=== PATIENT | female | born 1990 | race Caucasian/White ===

== ENCOUNTER → 2016-10-27 | Outpatient (CLI) | payer BC ==
--- NOTE | 2016-10-28 06:49 | US ---
EXAMINATION TYPE: US OB <= 14 wk fetus DATE OF EXAM: 10/27/2016 COMPARISON: NONE CLINICAL HISTORY: N91.2 AMENORRHEA. Positive beta-hCG test EXAM PERFORMED: Transabdominal (TA) EXAM MEASUREMENTS: GESTATIONAL AGE / DATING Physician Established: not established Dates by LMP: (14 weeks/0 days) EDC: 04/27/2017 Dates by First Scan: this is first scan Dates by Current Scan for: (14 weeks/1 days) EDC: 04/26/2017 MATERNAL ANATOMY Uterus: 15.8 x 7.8 x 10.7 Right Ovary: 3.2 x 1.7 x 2.1 cm Left Ovary: 3.1 x 2.7 x 2.0 cm Post CDS / Adnexa: wnl Presence of free fluid: none GESTATION / SURVEY CRL: 8.0 cm (14 weeks/1 days) Yolk Sac (normal less than 6mm): not seen Heart Rate: 144 bpm Rhythm: Normal IUP: Viable IUP Date of LMP: 07/21/2016 viable IUP that correlates with LMP. Single live intrauterine gestation is confirmed as gestational sac and pole are present. Yolk s ac is not clearly identified. No free fluid is seen in pelvic cul-de-sac. Both ovaries are visualized. No suspicious extraovarian adnexal mass is seen bilaterally. IMPRESSION: Single live intrauterine gestation is confirmed, mean crown-rump length is 8.0 cm corresponding to 14 week 1 day old fetus.
== END | disposition home or self-care (01) ==
LOC: RADUSWWP 16:12
PROVIDERS: ATTEND Internal Medicine
DX: N91.2 Amenorrhea, unspecified (principal); Z32.01 Encounter for pregnancy test, result positive; Z3A.14 14 weeks gestation of pregnancy
CPT/HCPCS: 76801

== ENCOUNTER 2017-04-30 02:33 | Outpatient (CLI) | payer BC ==
[2017-04-30 03:47] VITALS: BP 132/95; PULSE 99; RESP 15; TEMP 97.8
--- NOTE | 2017-05-19 10:06 | P.MSEPDOC ---
Presenting Problems - Arrival Data Date of Arrival on Unit: 04/30/17 Time of Arrival on Unit: 02:33 Mode of Transport: Wheelchair - Complaint OB-Reason for Admission/Chief Complaint: Vaginal Bleeding Medical History - Information : 1 Para: 0 Term: 0 : 0 Abortions: Spontaneous or Elective: 0 Number of Living Children: 0 - Gestational Age Gestational Age by REY (wks/days): 40 Weeks and 4 Days - History Complications: Smoker, Hx. Substance Abuse Comment: Hx THC stated in Review of Systems - Review of Systems Constitutional: No problems Breast: No problems ENT: No problems Cardiovascular: No problems Respiratory: No problems Gastrointestinal: No problems Genitourinary: No problems Musculoskeletal: No problems Neurological: No problems Skin: No problems Vital Signs - Temperature Temperature: 97.8 F Temperature Source: Temporal Artery Scan - Pulse Pulse Oximetery Pulse Rate: 99 Pulse Assessment Method: Automatic Cuff - Respirations Respiratory Rate: 15 Oxygen Delivery Method: Room Air O2 Sat by Pulse Oximetry: 97 - Blood Pressure Right Arm Blood Pressure: 132/95 Blood Pressure Mean: 107 Blood Pressure Source: Automatic Cuff Medical Screen Scoring (Pre) - Cervical Exam Dilation: 4-7 cm = 2 Membranes: Intact - Uterine Contractions Frequency: N/A Duration: N/A Intensity: N/A - Maternal Vital Signs Maternal Temperature: N/A Maternal Blood Pressure: N/A Signs of Preeclampsia: N/A Maternal Respirations: N/A - Pain Assessment Pain Location and Character: Abdomen Pain Scale Used: Numeric (1 - 10) Pain Intensity: 5 Pain Management Goal: 2 Pain Description: *Acute, Aching Pain Radiation Location: none Pain Frequency: Intermittent Pain Duration: 20 Pain Duration Units: Minutes Pain Behavior: None Exhibited Pain Aggravating Factors: None - Maternal Trauma Maternal Trauma: N/A - Assessment Baseline FHR: 140 Heart Rate - NICHD Category: Category II (Indeterminate) = 3 NST: Non-reactive = 3 Position: N/A Station: N/A - Total Score Total Score (Pre): 8 - Level of Risk Level of Risk: Medium (6-9) Physician Notification (Pre) - Physician Notified Physician Notified Date: 04/30/17 Physician Notified Time: 03:20 Physician/Practitioner Notifed:: Dr Vazquez New Order Received: Yes - Notification Comment Comment: Orders to orally hydrate to obtain reactive NST. If NST remains non- reactive call with update. If NST becomes reactive patient may be discharged home. Medical Screen Scoring (Post) - Cervical Exam Dilation: 4-7 cm = 2 Membranes: Intact - Uterine Contractions Frequency: N/A Duration: N/A Intensity: N/A - Maternal Vital Signs Maternal Temperature: N/A Maternal Blood Pressure: N/A Signs of Preeclampsia: N/A Maternal Respirations: N/A - Pain Assessment Pain Intensity: 0 Pain Management Goal: 2 - Maternal Trauma Maternal Trauma: N/A - Assessment Heart Rate: 140 Heart Rate - NICHD Category: Category I (Normal) = 0 NST: Reactive Position: N/A Station: N/A - Total Score Total Score (Post): 2 - Post Treatment Level of Risk Post Treatment Level of Risk: Low (0-5) Disposition - Disposition OB Disposition: Discharge to home, Written follow up instructions reviewed Discharge Date: 04/30/17 Discharge Time: 04:12 I agree with the RN Medical Screening Exam: Yes Risk & Benefit of care provided described in d/c instruction: Yes Diagnosis: FALSE LABOR AT OR AFTER 37 COMPLETED WEEKS OF GESTATION
== END 2017-04-30 04:12 | disposition home or self-care (01) ==
LOC: FBPOP 02:33
PROVIDERS: ATTEND Obstetrics & Gynecology Obstetrics
DX: O47.1 False labor at or after 37 completed weeks of gestation (principal); O46.93 Antepartum hemorrhage, unspecified, third trimester; Z3A.40 40 weeks gestation of pregnancy
CPT/HCPCS: 59025; 99213

== ENCOUNTER 2017-04-30 22:05 | Inpatient (IN) | payer BC, OTHER ==
--- NOTE | 2017-05-01 01:28 | P.HPOB ---
History of Present Illness H&P Date: 05/01/17 Chief Complaint: Contractions This is a 26-year-old 1 para 0 at 40-2/7 weeks that presents with complaints of contractions every 2-3 minutes. On initial cervical exam she was 4-5 cm, -2 station. heart tones were noted to be reactive. blood work shows blood type of A+, rubeola immune, RPR nonreactive, hepatitis B surface antigen negative, HIV negative normal Glucola screening, group beta strep negative on 03/28. Review of Systems Constitutional: Denies fever Genitourinary: Reports Past Medical History Past Medical History: Seizure Disorder Additional Past Medical History / Comment(s): epilepsy History of Any Multi-Drug Resistant Organisms: None Reported Past Surgical History: No Surgical Hx Reported Smoking Status: Former smoker Medications and Allergies Home Medications Medication Instructions Recorded Confirmed Type Famotidine [Pepcid AC] 10 mg PO ONCE PRN 04/30/17 04/30/17 History Pnv No.95/Ferrous Fum/Folic AC 1 each PO DAILY 04/30/17 04/30/17 History [ Multivitamin Tablet] Allergies Allergy/AdvReac Type Severity Reaction Status Date / Time No Known Allergies Allergy Verified 04/30/17 22:21 Exam Osteopathic Statement: *. No significant issues noted on an osteopathic structural exam other than those noted in the History and Physical/Consult. - Vital Signs Vital signs: Intake and Output 04/30/17 04/30/17 05/01/17 14:59 22:59 06:59 Other: Weight 114.305 kg Patient Weight 05/01/17 06:59 Weight 114.305 kg Assessment and Plan (1) Term Narrative/Plan: We'll admit to labor and delivery with expectant management, Stadol or epidural as needed for pain control. Current Visit: Yes Status: Acute Code(s): Z34.80 - ENCOUNTER FOR SUPRVSN OF NORMAL , UNSP TRIMESTER SNOMED Code(s): 28952970 (2) Active labor at term Current Visit: Yes Status: Acute Code(s): YEK7147 - SNOMED Code(s): 94681921
[2017-05-01] MEDS ORDERED: OXYTOCIN 10 UNIT/ML 1 ML VIAL IM PRN (01:29)
[2017-05-01] MEDS ORDERED: LIDOCAINE 1% (PF) 10 MG/ML (30 ML SDV) SQ PRN (01:29)
[2017-05-01] MEDS ORDERED: TERBUTALINE 1 MG/ML VIAL SQ PRN (01:29)
[2017-05-01] MEDS ORDERED: METHYLERGONOVINE 0.2 MG/ML 1 ML AMP IM PRN (01:29)
[2017-05-01] MEDS ORDERED: CARBOPROST TROMETHAMINE 250 MCG/ML 1 ML AMP IM PRN (01:29)
[2017-05-01] MEDS: LACTATED RINGERS 1,000 ML IV SCH (02:36)
[2017-05-01 03:12] LABS: Basophils # (A) 0.1 k/uL (0-0.2); Basophils % (A) 0 %; Eosinophils # (A) 0.1 k/uL (0-0.7); Eosinophils % (A) 1 %; HCT 39.5 % (34.0-46.0); HGB 12.9 gm/dL (11.4-16.0); Lymphocytes # (A) 2.4 k/uL (1.0-4.8); Lymphocytes % (A) 16 %; MCH 28.9 pg (25.0-35.0); MCHC 32.6 g/dL (31.0-37.0); MCV 88.8 fL (80.0-100.0); Mean Platelet Volume 7.4; Monocytes # (A) 0.8 k/uL (0-1.0); Monocytes % (A) 5 %; Neutrophils # (A) 11.6 k/uL (1.3-7.7); Neutrophils % (A) 76 %; Platelet Count 300 k/uL (150-450); RBC 4.45 m/uL (3.80-5.40); RDW 14.6 % (11.5-15.5); WBC 15.3 k/uL (3.8-10.6)
[2017-05-01 03:53] LABS: Amphetamine Screen,Urine Not Detected (NotDetected); Barbiturate Screen,Urine Not Detected (NotDetected); Benzodiazepines Screen,Urine Not Detected (NotDetected); Cocaine Screen,Urine Not Detected (NotDetected); Methadone Screen, Urine Not Detected (NotDetected); Opiate Screen,Urine Not Detected (NotDetected); Oxycodone Screen, Urine Not Detected (NotDetected); Phencyclidine Screen,Urine Not Detected (NotDetected); Tricyclic Antidepressant,Urine Not Detected (NotDetected); Urn Cannabinoid Scrn Not Detected (NotDetected)
[2017-05-01] MEDS: BUTORPHANOL 1 MG/ML 1 ML VIAL IV PRN ×2 (03:55→06:12)
[2017-05-01] MEDS ORDERED: ZOLPIDEM 5 MG TAB PO PRN (08:52)
[2017-05-01] MEDS ORDERED: ACETAMINOPHEN TAB 325 MG TAB PO PRN (08:52)
[2017-05-01] MEDS ORDERED: diphenhydrAMINE 25 MG CAP PO PRN (08:52)
[2017-05-01] MEDS ORDERED: Acetaminophen-Codeine 300-30mg TAB PO PRN ×2 (08:52)
[2017-05-01] MEDS ORDERED: SIMETHICONE 80 MG CHEWABLE PO PRN (08:52)
[2017-05-01] MEDS ORDERED: HYDROCORTISONE 2.5% RECTAL CREAM 30 GM TUBE RECTAL PRN (08:52)
[2017-05-01] MEDS ORDERED: LANOLIN CREAM 5 GM TUBE TOPICAL PRN (08:52)
[2017-05-01] MEDS ORDERED: diphenhydrAMINE 50 MG CAP PO PRN (08:52)
[2017-05-01] MEDS ORDERED: WITCH HAZEL 1 EACH MED..PAD TOPICAL PRN (08:52)
[2017-05-01] MEDS ORDERED: BENZOCAINE/MENTHOL SPRAY 1 GM/SPRAY AEROSOL TOPICAL PRN (08:52)
[2017-05-01] MEDS ORDERED: diphenhydrAMINE 50 MG/ML 1 ML VIAL IVP PRN ×2 (08:52)
--- NOTE | 2017-05-01 08:52 | P.PROBDLV ---
Vaginal Delivery Note - . Vaginal Delivery Note: This is a 26-year-old 1 para 0 at 40-4/7 weeks that presented in active labor. She progressed through labor with amniotomy being performed and thin meconium being noted. She progressed to complete and had a spontaneous vaginal delivery of a viable male infant at 8:10am and weight 10-7, Apgars of 8 and 9 at one and 5 minutes respectively. Consent progressed to and head was delivered atraumatically followed by the anterior shoulder gentle traction was used to deliver the anterior shoulder followed by the posterior shoulder, the baby's body was delivered without difficulty and the was placed on mom's abdomen. The cord is doubly clamped and cut. On inspection the patient's vaginal vault a second- degree laceration was noted this was repaired in the usual fashion with 3-0 Vicryl after lidocaine had been injected to anesthetize the area. Patient tolerated delivery/repair well on it inspection of the patient's vaginal vault after repair no further defects were noted a rectal exam was performed given the size of the and no defects were appreciated.
[2017-05-01] MEDS ORDERED: OXYTOCIN 20 UNITS/1000 ML NS 1,000 ML IV SCH (09:00)
[2017-05-01] MEDS: PRENATAL VIT-IRON-FOLIC ACID 1 EACH CAP PO SCH (12:12)
[2017-05-01] MEDS: IBUPROFEN 600 MG TAB PO PRN (14:55)
[2017-05-01] MEDS: SENNOSIDES-DOCUSATE SODIUM 1 EACH TAB PO SCH (21:13)
[2017-05-02] MEDS: LACTATED RINGERS 1,000 ML IV SCH (00:44)
[2017-05-02 09:07] VITALS: RESP 16
[2017-05-02] MEDS: SENNOSIDES-DOCUSATE SODIUM 1 EACH TAB PO SCH ×2 (09:09→18:24)
[2017-05-02] MEDS: PRENATAL VIT-IRON-FOLIC ACID 1 EACH CAP PO SCH (09:20)
--- NOTE | 2017-05-02 09:31 | P.DS ---
Providers Date of admission: 05/01/17 01:19 Expected date of discharge: 05/02/17 Attending physician: Alma Guzman [facility] Course: This is a 26-year-old white female 1 para 0 EDC 04/27/2017 at 40-4/7 weeks' gestation. Patient presented to labor and delivery in spontaneous active labor. Her was essentially unremarkable. Blood type is A+, rubella status immune. Group B strep cultures negative. Please see dictated history and physical for details. Patient had meconium-stained fluid on artificial amniorrhexis. She progressed quickly through labor and went on to deliver a liveborn male with scores of 8 and 9 at one and 5 minutes respectively. Infant weighed 10 lbs. 7 oz. or 4735 g. There was a small second-degree spontaneous laceration easily repaired. Please see dictated delivery note for details. Today the patient is feeling well. She is voiding, ambulate in, and passing flatus without difficulty. Vital signs are stable and she is afebrile. Ralston is doing well, circumcision has been performed. Patient is not breast-feeding. She has minimal to moderate lochia rubra. Perineal body is clean and dry. Breasts are not engorged. Being discharged home today in good condition. She will follow-up in the office with me in 6 weeks. I have reminded her no intercourse, tampons or douching. She will use [id number] ibuprofen products as needed for pain. I've asked her to call me with any fevers shakes or chills, foul smelling or copious lochia, with the passage of large blood clots, with any pain not alleviated by ibuprofen products, or indeed with any concerns. I have discussed with her contraceptive options and we will delineate this better in the office. Patient Condition at Discharge: Good Plan - Discharge Summary New Discharge Prescriptions: No Action Pnv No.95/Ferrous Fum/Folic AC [ Multivitamin Tablet] 1 each PO DAILY Famotidine [Pepcid AC] 10 mg PO ONCE PRN PRN Reason: Heartburn Discharge Medication List Famotidine [Pepcid AC] 10 mg PO ONCE PRN 04/30/17 [History] Pnv No.95/Ferrous Fum/Folic AC [ Multivitamin Tablet] 1 each PO DAILY [History] Follow up Appointment(s)/Referral(s): Alma Guzman MD [Primary Care Provider] - 6 Weeks
[2017-05-02] MEDS: IBUPROFEN 600 MG TAB PO PRN (15:21)
[2017-05-02 16:05] VITALS: BP 105/66; PULSE 103; TEMP 98.1
== END 2017-05-02 19:55 | disposition home or self-care (01) | DRG 775 ==
LOC: FBPOP 22:05 → 4FBP 05-01 01:19
PROVIDERS: ADMIT Obstetrics & Gynecology Obstetrics; ATTEND Obstetrics & Gynecology
PROC: 10E0XZZ Delivery of Products of Conception, External Approach (ICD-10-PCS; principal; 2017-05-01)
PROC: 0KQM0ZZ Repair Perineum Muscle, Open Approach (ICD-10-PCS; 2017-05-01)
PROC: 10907ZC Drainage of Amniotic Fluid, Therapeutic from Products of Conception, Via Natural or Artificial Opening (ICD-10-PCS; 2017-05-01)
DX: O48.0 Post-term pregnancy (principal); O70.1 Second degree perineal laceration during delivery; Z37.0 Single live birth; Z87.891 Personal history of nicotine dependence; Z3A.40 40 weeks gestation of pregnancy; Z86.69 Personal history of other diseases of the nervous system and sense organs; O77.0 Labor and delivery complicated by meconium in amniotic fluid
CPT/HCPCS: 59025; 80306; 85025; 88307; 99213

== ENCOUNTER 2017-12-03 07:40 | Emergency (ER) | payer BC, OTHER ==
[2017-12-03 07:45] VITALS: BP 109/64; RESP 18; TEMP 98.4
[2017-12-03] MEDS ORDERED: IBUPROFEN 600 MG TAB PO STA (08:19)
[2017-12-03] MEDS ORDERED: BENZOCAINE/MENTHOL LOZENG 1 EACH LOZENGE MUCOUS MEM STA (08:19)
--- NOTE | 2017-12-03 08:21 | ED ---
ENT HPI - General Chief complaint: ENT Stated complaint: sore throat Time Seen by Provider: 12/03/17 08:12 Source: patient Mode of arrival: ambulatory Limitations: no limitations - History of Present Illness Initial comments: 27-year-old female patient presents to the emergency department today for complaints of sore throat, nasal congestion, and cough that started last evening. Patient states that when she woke this morning her throat was very sore and it was painful for her to swallow. States that her throat feels swollen. Patient denies any current fever or chills. Denies any ear pain. Denies any sick contacts or recent travel. Denies any sputum production with her cough. Does admit to smoking cigarettes. Denies any chance of , has nexplanon implant. Patient denies any recent rash, shortness breath, chest pain, abdominal pain, nausea, vomiting, diarrhea, constipation, back pain, numbness, tingling, dizziness, weakness, hematuria, dysuria, urinary urgency, urinary frequency, headache, visual changes, or any other complaints. - Related Data Home Medications Medication Instructions Recorded Confirmed Famotidine [Pepcid AC] 10 mg PO ONCE PRN 04/30/17 04/30/17 Pnv No.95/Ferrous Fum/Folic AC 1 each PO DAILY 04/30/17 04/30/17 [ Multivitamin Tablet] Allergies Allergy/AdvReac Type Severity Reaction Status Date / Time No Known Allergies Allergy Verified 12/03/17 07:42 Review of Systems ROS Statement: Those systems with pertinent positive or pertinent negative responses have been documented in the HPI. ROS Other: All systems not noted in ROS Statement are negative. Past Medical History Past Medical History: Asthma, Seizure Disorder Additional Past Medical History / Comment(s): epilepsy History of Any Multi-Drug Resistant Organisms: None Reported Past Surgical History: No Surgical Hx Reported Past Anesthesia/Blood Transfusion Reactions: No Reported Reaction Past Psychological History: Anxiety, Bipolar Smoking Status: Current some day smoker Past Alcohol Use History: Rare Past Drug Use History: Marijuana - Past Family History Mother Family Medical History: Hypertension General Exam Limitations: no limitations General appearance: alert, in no apparent distress, other (This is a well- developed, well-nourished adult female patient in no acute distress. Vital signs upon presentation are temperature 98.4F, pulse 107, respirations 18, blood pressure 109/64, pulse ox 97% on room air.) Eye exam: Present: normal appearance, PERRL, EOMI. Absent: scleral icterus, conjunctival injection, periorbital swelling ENT exam: Present: normal exam, mucous membranes moist, TM's normal bilaterally. Absent: normal oropharynx (Pharyngeal erythema, tonsillar hypertrophy. No exudate noted.) Neck exam: Present: normal inspection. Absent: tenderness, meningismus, lymphadenopathy Respiratory exam: Present: normal lung sounds bilaterally. Absent: respiratory distress, wheezes, rales, rhonchi, stridor Cardiovascular Exam: Present: regular rate, normal rhythm, normal heart sounds. Absent: systolic murmur, diastolic murmur, rubs, gallop, clicks GI/Abdominal exam: Present: soft, normal bowel sounds. Absent: distended, tenderness, guarding, rebound, rigid Neurological exam: Present: alert, oriented X3, CN II-XII intact Psychiatric exam: Present: normal affect, normal mood Skin exam: Present: warm, dry, intact, normal color. Absent: rash Course Vital Signs 12/03/17 12/03/17 07:42 08:35 Temperature 98.4 F Pulse Rate 107 H 96 Respiratory 18 Rate Blood Pressure 109/64 O2 Sat by Pulse 97 Oximetry Medical Decision Making - Medical Decision Making 27 year-old female patient presented to the emergency department today for evaluation of sore throat, cough, nasal congestion. Physical examination did reveal tonsillar hypertrophy and erythema with no evidence of exudate. There is no lymphadenopathy. Patient is afebrile, vital signs stable. We did perform strep screen which was negative. Given patient's symptoms is felt that she most likely is suffering from viral upper respiratory illness. She was given Cepacol lozenges and ibuprofen for throat inflammation. She is instructed to use [id number] nasal decongestants, increase her fluids, and rest. She is instructed to follow-up with her primary care physician for recheck in 1-2 days. Return parameters discussed in detail. She verbalizes understanding and agrees with this plan. - Lab Data Lab Results 12/03/17 Range/Units 07:46 Group A Strep Rapid Negative (Negative) Disposition Clinical Impression: Viral upper respiratory illness Disposition: HOME SELF-CARE Condition: Good Instructions: Upper Respiratory Infection (ED) Additional Instructions: Rest. Increase fluids. Take Tylenol and Motrin for pain control. Use cough drops and other medications to soothe her throat. Follow-up through primary care physician for recheck in 1-2 days. Return here immediately for any new, worsening, or concerning symptoms. Is patient prescribed a controlled substance at d/c from ED?: No Referrals: Solitario Mayfield MD [Primary Care Provider] - 1-2 days Time of Disposition: 08:21
[2017-12-03 08:35] VITALS: PULSE 96
== END 2017-12-03 08:35 | disposition home or self-care (01) ==
LOC: EC 07:40
DX: J06.9 Acute upper respiratory infection, unspecified (principal); F17.210 Nicotine dependence, cigarettes, uncomplicated
CPT/HCPCS: 87081; 87430; 99283

== ENCOUNTER 2017-12-29 15:02 | Emergency (ER) | payer OTHER ==
[2017-12-29 15:20] VITALS: RESP 18
[2017-12-29] MEDS ORDERED: SODIUM CHLORIDE 0.9% 1,000 ML IV STA (15:28)
--- NOTE | 2017-12-29 15:31 | ED ---
General Adult HPI - General Chief complaint: Abdominal Pain Stated complaint: abdominal pain Time Seen by Provider: 12/29/17 15:16 Source: patient, RN notes reviewed Mode of arrival: ambulatory Limitations: no limitations - History of Present Illness Initial comments: Patient 27-year-old female presents to the emergency room today with a chief complaint of abdominal pain that started a few hours when She was at work. She states when she was at work again feeling some discomfort in the middle of the abdomen around her belly button. She states that she has had increased pain. She states when she sitting seems to be better but when she stands up the pain seems increased. Patient states she's never had pain similar to in the past prescribed as a sharp type pain. Patient denies any other symptoms. Patient denies any recent fever, chills, shortness of breath, chest pain, back pain, abdominal pain, nausea or vomiting, numbness or tingling, dysuria or hematuria, constipation or diarrhea, headaches or visual changes, or any other complaints. - Related Data Home Medications Medication Instructions Recorded Confirmed Pnv No.95/Ferrous Fum/Folic AC 1 tab PO DAILY 04/30/17 12/29/17 [ Multivitamin Tablet] Acetaminophen Tab [Tylenol Tab] 1,000 mg PO Q6HR PRN 12/29/17 12/29/17 Amoxicillin 500 mg PO TID 12/29/17 12/29/17 Etonogestrel [Nexplanon] 68 mg SQ ONCE 12/29/17 12/29/17 Sertraline [Zoloft] 100 mg PO DAILY 12/29/17 12/29/17 Allergies Allergy/AdvReac Type Severity Reaction Status Date / Time No Known Allergies Allergy Verified 12/29/17 15:40 Review of Systems ROS Statement: Those systems with pertinent positive or pertinent negative responses have been documented in the HPI. ROS Other: All systems not noted in ROS Statement are negative. Past Medical History Past Medical History: Asthma, Seizure Disorder Additional Past Medical History / Comment(s): epilepsy History of Any Multi-Drug Resistant Organisms: None Reported Past Surgical History: No Surgical Hx Reported Past Anesthesia/Blood Transfusion Reactions: No Reported Reaction Past Psychological History: Anxiety, Bipolar Smoking Status: Current some day smoker Past Alcohol Use History: Rare Past Drug Use History: Marijuana - Past Family History Mother Family Medical History: Hypertension General Exam - General Exam Comments Initial Comments: General: The patient is awake and alert, in no distress, and does not appear acutely ill. Eye: Extra-ocular movements are intact. There is normal conjunctiva bilaterally. No signs of icterus. Ears, nose, mouth and throat: There are moist mucous membranes and no oral lesions. Neck: The neck is supple, there is no tenderness or JVD. Cardiovascular: There is a regular rate and rhythm. No murmur, rub or gallop is appreciated. Respiratory: Lungs are clear to auscultation, respirations are non-labored, breath sounds are equal. No wheezes, stridor, rales, or rhonchi. Gastrointestinal: Admits to palpation. Patient does have tenderness right lower quadrant. No rebound, guarding or CVA tenderness. Musculoskeletal: Normal ROM, no tenderness. Sensation intact. Neurological: A&O x 3. CN II-XII intact, There are no obvious motor or sensory deficits. Coordination appears grossly intact. Speech is normal. Skin: Skin is warm and dry and no rashes or lesions are noted. Psychiatric: Cooperative, appropriate mood & affect, normal judgment. Limitations: no limitations Course Vital Signs 12/29/17 15:16 Temperature 98.6 F Pulse Rate 110 H Respiratory 18 Rate Blood Pressure 125/70 O2 Sat by Pulse 96 Oximetry Medical Decision Making - Medical Decision Making Patient reexamined at the central no signs of distress resting comfortable. She states the pain is only worse with movements. Patient labs been reviewed are unremarkable. Patient did have tenderness on palpation right lower quadrant. Symptoms of early appendicitis were discussed in detail with the patient. Options of a CT were discussed. Risks and benefits were discussed with the patient and they stated that they would like CAT scan performed. CT was performed and shows no evidence of appendicitis. No other acute abnormalities. Patient will be discharged home at this time patient advised Tylenol/ ibuprofen as needed for pain. Advised follow-up with her family physician over the next few days return here to emergency room if any symptoms increase worsen or for concerns. - Lab Data Result diagrams: 12/29/17 15:35 12/29/17 15:35 Lab Results 12/29/17 12/29/17 12/29/17 Range/Units 15:35 15:35 15:35 WBC 10.2 (3.8-10.6) k/uL RBC 4.81 (3.80-5.40) m/uL Hgb 13.1 (11.4-16.0) gm/dL Hct 41.7 (34.0-46.0) % MCV 86.7 (80.0-100.0) fL MCH 27.2 (25.0-35.0) pg MCHC 31.4 (31.0-37.0) g/dL RDW 15.2 (11.5-15.5) % Plt Count 317 (150-450) k/uL Neutrophils % 70 % Lymphocytes % 22 % Monocytes % 5 % Eosinophils % 1 % Basophils % 1 % Neutrophils # 7.1 (1.3-7.7) k/uL Lymphocytes # 2.3 (1.0-4.8) k/uL Monocytes # 0.5 (0-1.0) k/uL Eosinophils # 0.1 (0-0.7) k/uL Basophils # 0.1 (0-0.2) k/uL Sodium 140 (137-145) mmol/L Potassium 4.6 (3.5-5.1) mmol/L Chloride 105 (98-107) mmol/L Carbon Dioxide 26 (22-30) mmol/L Anion Gap 9 mmol/L BUN 14 (7-17) mg/dL Creatinine 0.74 (0.52-1.04) mg/dL Est GFR (CKD-EPI)AfAm >90 (>60 ml/min/1.73 sqM) Est GFR (CKD-EPI)NonAf >90 (>60 ml/min/1.73 sqM) Glucose 116 H (74-99) mg/dL Calcium 9.7 (8.4-10.2) mg/dL Total Bilirubin 0.5 (0.2-1.3) mg/dL AST 24 (14-36) U/L ALT 29 (9-52) U/L Alkaline Phosphatase 85 (38-126) U/L Total Protein 7.2 (6.3-8.2) g/dL Albumin 4.0 (3.5-5.0) g/dL Amylase 46 (30-110) U/L Lipase 70 (23-300) U/L Urine Color Urine Appearance (Clear) Urine pH (5.0-8.0) Ur Specific [place] (1.001-1.035) Urine Protein (Negative) Urine Glucose (UA) (Negative) Urine Ketones (Negative) Urine Blood (Negative) Urine Nitrite (Negative) Urine Bilirubin (Negative) Urine Urobilinogen (<2.0) mg/dL Ur Leukocyte Esterase (Negative) Urine RBC (0-5) /hpf Urine WBC (0-5) /hpf Ur Squamous Epith Cells (0-4) /hpf Urine Bacteria (None) /hpf Urine Mucus (None) /hpf Urine HCG, Qual Not Detected (Not Detectd) 12/29/17 Range/Units 15:35 WBC (3.8-10.6) k/uL RBC (3.80-5.40) m/uL Hgb (11.4-16.0) gm/dL Hct (34.0-46.0) % MCV (80.0-100.0) fL MCH (25.0-35.0) pg MCHC (31.0-37.0) g/dL RDW (11.5-15.5) % Plt Count (150-450) k/uL Neutrophils % % Lymphocytes % % Monocytes % % Eosinophils % % Basophils % % Neutrophils # (1.3-7.7) k/uL Lymphocytes # (1.0-4.8) k/uL Monocytes # (0-1.0) k/uL Eosinophils # (0-0.7) k/uL Basophils # (0-0.2) k/uL Sodium (137-145) mmol/L Potassium (3.5-5.1) mmol/L Chloride (98-107) mmol/L Carbon Dioxide (22-30) mmol/L Anion Gap mmol/L BUN (7-17) mg/dL Creatinine (0.52-1.04) mg/dL Est GFR (CKD-EPI)AfAm (>60 ml/min/1.73 sqM) Est GFR (CKD-EPI)NonAf (>60 ml/min/1.73 sqM) Glucose (74-99) mg/dL Calcium (8.4-10.2) mg/dL Total Bilirubin (0.2-1.3) mg/dL AST (14-36) U/L ALT (9-52) U/L Alkaline Phosphatase (38-126) U/L Total Protein (6.3-8.2) g/dL Albumin (3.5-5.0) g/dL Amylase (30-110) U/L Lipase (23-300) U/L Urine Color Yellow Urine Appearance Cloudy H (Clear) Urine pH 5.5 (5.0-8.0) Ur Specific [place] 1.022 (1.001-1.035) Urine Protein Trace H (Negative) Urine Glucose (UA) Negative (Negative) Urine Ketones Negative (Negative) Urine Blood Large H (Negative) Urine Nitrite Negative (Negative) Urine Bilirubin Negative (Negative) Urine Urobilinogen <2.0 (<2.0) mg/dL Ur Leukocyte Esterase Large H (Negative) Urine RBC 5 (0-5) /hpf Urine WBC 6 H (0-5) /hpf Ur Squamous Epith Cells 31 H (0-4) /hpf Urine Bacteria Occasional H (None) /hpf Urine Mucus Rare H (None) /hpf Urine HCG, Qual (Not Detectd) Disposition Clinical Impression: Abdominal pain Disposition: HOME SELF-CARE Condition: Good Instructions: Abdominal Pain (ED) Additional Instructions: Please use medication Tylenol/ibuprofen as discussed. Please follow-up with family doctor in the next 2 days of symptoms have not improved. Please return to emergency room if the symptoms increase or worsen or for any other concerns. Is patient prescribed a controlled substance at d/c from ED?: No Referrals: Solitario Mayfield MD [Primary Care Provider] - 1-2 days Time of Disposition: 16:54
[2017-12-29 15:57] LABS: Appearance,Urine Cloudy (Clear); Bacteria,Urine Occasional /hpf; Bilirubin,Urine Negative (Negative); Blood,Urine Large (Negative); Color,Urine Yellow; Glucose,Urine (UA) Negative (Negative); Ketones,Urine Negative (Negative); Leukocyte Esterase,Urine Large (Negative); Mucus,Urine Rare /hpf; Nitrite,Urine Negative (Negative); PH, Urine 5.5 (5.0-8.0); Protein,Urine Trace (Negative); RBC,Urine 5 /hpf (0-5); Specific Gravity,Urine 1.022 (1.001-1.035); Squamous Epithelial Cell,Urine 31 /hpf (0-4); Urobilinogen,Urine <2.0 mg/dL (<2.0); WBC,Urine 6 /hpf (0-5)
[2017-12-29 16:00] LABS: Basophils # (A) 0.1 k/uL (0-0.2); Basophils % (A) 1 %; Eosinophils # (A) 0.1 k/uL (0-0.7); Eosinophils % (A) 1 %; HCT 41.7 % (34.0-46.0); HGB 13.1 gm/dL (11.4-16.0); Lymphocytes # (A) 2.3 k/uL (1.0-4.8); Lymphocytes % (A) 22 %; MCH 27.2 pg (25.0-35.0); MCHC 31.4 g/dL (31.0-37.0); MCV 86.7 fL (80.0-100.0); Mean Platelet Volume 6.6; Monocytes # (A) 0.5 k/uL (0-1.0); Monocytes % (A) 5 %; Neutrophils # (A) 7.1 k/uL (1.3-7.7); Neutrophils % (A) 70 %; Platelet Count 317 k/uL (150-450); RBC 4.81 m/uL (3.80-5.40); RDW 15.2 % (11.5-15.5); WBC 10.2 k/uL (3.8-10.6)
[2017-12-29 16:16] LABS: ALT 29 U/L (9-52); AST 24 U/L (14-36); Alkaline Phosphatase 85 U/L (38-126); Amylase 46 U/L (30-110); Anion Gap 9 mmol/L; Blood Urea Nitrogen 14 mg/dL (7-17); Calcium 9.7 mg/dL (8.4-10.2); Carbon Dioxide 26 mmol/L (22-30); Chloride 105 mmol/L (98-107); Glucose 116 mg/dL (74-99); Lipase 70 U/L (23-300); Potassium 4.6 mmol/L (3.5-5.1); Sodium 140 mmol/L (137-145); Total Bilirubin 0.5 mg/dL (0.2-1.3); Total Protein 7.2 g/dL (6.3-8.2)
--- NOTE | 2017-12-29 16:50 | CT ---
EXAMINATION TYPE: CT abdomen pelvis w con DATE OF EXAM: 12/29/2017 COMPARISON: None HISTORY: Lower abdominal pain CT DLP: 1734 mGycm Automated exposure control for dose reduction was used. TECHNIQUE: Helical acquisition of images was performed from the lung bases through the pelvis. CONTRAST: Performed without Oral Contrast and with IV Contrast, patient injected with 100 mL of Isovue 300. FINDINGS: Lung bases are clear. There is no pleural effusion. Heart size is normal. Liver spleen pancreas gallbladder appear normal. Bile ducts are not dilated. There is no adrenal mass . Kidneys show satisfactory contrast opacification. There is no hydronephrosis. There is no retroperi toneal adenopathy. There is no ascites. There is small umbilical hernia that contains fat. Appendix a ppears normal. There is no free fluid in the pelvis. Bladder distends smoothly. Uterus is anteverted. There is no evidence of a pelvic mass. Bony structures appear intact. IMPRESSION: NEGATIVE CT SCAN OF THE ABDOMEN AND PELVIS. NORMAL APPENDIX.
[2017-12-29 17:10] VITALS: BP 104/61; PULSE 89; TEMP 98.7
== END 2017-12-29 17:10 | disposition home or self-care (01) ==
LOC: EC 15:02
DX: R10.33 Periumbilical pain (principal); F31.9 Bipolar disorder, unspecified; F41.9 Anxiety disorder, unspecified; F17.200 Nicotine dependence, unspecified, uncomplicated; Z79.899 Other long term (current) drug therapy
CPT/HCPCS: 36415; 80053; 82150; 83690; 85025; 81001; 81025; 74177; 99284; 96360; Q9967

== ENCOUNTER → 2020-07-22 | Outpatient (CLI) | payer BC, OTHER | END | disposition home or self-care (01) | LOC: LABWHC1 16:53 | PROVIDERS: ATTEND Family Medicine | DX: R05 Cough (principal); Z20.822 Contact with and (suspected) exposure to COVID-19 | CPT/HCPCS: U0003; C9803 ==

== ENCOUNTER 2021-01-22 11:42 | Emergency (ER) | payer OTHER ==
[2021-01-22] MEDS ORDERED: IBUPROFEN 800 MG TAB PO STA (12:14)
[2021-01-22] MEDS ORDERED: ACETAMINOPHEN TAB 500 MG TAB PO STA (12:14)
[2021-01-22] MEDS ORDERED: AMPICILLIN-SULBACTAM 3 GM in SODIUM CHLORIDE 0.9% 100 ML IVPB STA (12:29)
[2021-01-22] MEDS ORDERED: DEXAMETHASONE SOD PHOSPHATE 10 MG/ML 1 ML VIAL IV STA (12:29)
[2021-01-22] MEDS ORDERED: SODIUM CHLORIDE 0.9% 1,000 ML IV STA (12:29)
[2021-01-22 12:41] LABS: Basophils # (A) 0.1 k/uL (0-0.2); Basophils % (A) 1 %; Eosinophils # (A) 0.2 k/uL (0-0.7); Eosinophils % (A) 1 %; HCT 43.5 % (34.0-46.0); Lymphocytes % (A) 8 %; MCH 29.9 pg (25.0-35.0); MCHC 34.6 g/dL (31.0-37.0); MCV 86.4 fL (80.0-100.0); Monocytes # (A) 0.9 k/uL (0-1.0); Monocytes % (A) 4 %; Neutrophils # (A) 20.3 k/uL (1.3-7.7); Neutrophils % (A) 85 %; Platelet Count 324 k/uL (150-450); RBC 5.03 m/uL (3.80-5.40); RDW 14.1 % (11.5-15.5); WBC 23.8 k/uL (3.8-10.6)
--- NOTE | 2021-01-22 12:47 | ED ---
General Adult HPI - General Chief complaint: Upper Respiratory Infection Stated complaint: fever/back pain Time Seen by Provider: 01/22/21 12:13 Source: patient, RN notes reviewed, old records reviewed Mode of arrival: ambulatory Limitations: no limitations - History of Present Illness Initial comments: I evaluated the patient when she was placed in a room. Patient is a 30-year-old female with past medical history remarkable for epilepsy, asthma who presents emergency Department complaining of a 2 to three-day history of worsening sore throat. She has no known sick contacts. She is having subjective fevers as well. She states that she is having worsening sore throat, worse on the left side. She states it is hard to swallow and tolerate liquids and solids. She believes that her voice sounds somewhat muffled as well. Denies any difficulty breathing, chest pain, nausea, vomiting. Denies any dizziness, they with vision, weakness or numbness. She denies any history of peritonsillar abscess. She is not vaccinated for COVID-19. Johana has no acute complaint at this time. She is concerned for the pain and swelling in her throat. She does endorse a cough productive of a yellowish sputum, describes it as a "throaty cough." - Related Data Home Medications Medication Instructions Recorded Confirmed Etonogestrel [Nexplanon] 68 mg SQ ONCE 12/29/17 01/22/21 Ibuprofen [Motrin Ib] 600 mg PO DAILY PRN 01/22/21 01/22/21 Naproxen 500 mg PO BID PRN 01/22/21 01/22/21 Previous Rx's Medication Instructions Recorded Amoxicillin/Potassium Clav 1 tab PO Q12HR 10 Days #20 tab 01/22/21 [Augmentin 875-125 Tablet] Allergies Allergy/AdvReac Type Severity Reaction Status Date / Time No Known Allergies Allergy Verified 01/22/21 14:05 Review of Systems ROS Statement: Those systems with pertinent positive or pertinent negative responses have been documented in the HPI. Review of Systems: CONST: Endorses fever EYES: Denies blurry vision ENT: Endorses nasal congestion, sore throat C/V: Denies Chest pain RESP: Denies shortness of breath GI: Denies abdominal pain : Denies dysuria SKIN: Denies rash. MSK: Denies joint pain. NEURO: Denies headache ROS Other: All systems not noted in ROS Statement are negative. Past Medical History Past Medical History: Asthma, Seizure Disorder Additional Past Medical History / Comment(s): epilepsy History of Any Multi-Drug Resistant Organisms: None Reported Past Surgical History: No Surgical Hx Reported Past Anesthesia/Blood Transfusion Reactions: No Reported Reaction Past Psychological History: Anxiety, Bipolar Past Alcohol Use History: Rare Past Drug Use History: Marijuana - Past Family History Mother Family Medical History: Hypertension General Exam - General Exam Comments Initial Comments: General: Appears in mild distress secondary to throat discomfort. HEAD: Normal with no signs of head trauma. EYES: PERRLA, EOMI, conjunctiva normal, no discharge. ENT: Hearing grossly intact. Normal bilateral tympanic membranes. No sinus tenderness palpation. Patient has bilateral, left worse than right, peritonsillar swelling suspicious for left FIRE CHIEF with very slight uvular deviation to the right. No stridor auscultated. Left tonsil is erythematous with a small amount of exudates. Patient has mild left-sided lymphadenopathy without any tenderness or swelling to palpation of the floor the mouth. RESPIRATORY: Clear breath sounds bilaterally. No wheezes, rales, or rhonchi. C/V: Patient is tachycardic with regular rhythm. S1 and S2 auscultated. Peripheral pulses are 2+ and intact throughout. ABD: Abd is soft, nontender, nondistended EXT: Normal range of motion, no obvious deformity SKIN: No rashes or lesions observed on exposed skin. NEURO: Alert and oriented 4. Limitations: no limitations Course Vital Signs 01/22/21 01/22/21 11:44 13:53 Temperature 99.6 F 98.3 F Pulse Rate 119 H 102 H Respiratory 20 18 Rate Blood Pressure 118/73 104/59 O2 Sat by Pulse 96 97 Oximetry Medical Decision Making - Medical Decision Making Based on the patient's presentation and physical exam, I'm concerned for left- sided peritonsillar abscess. I have a lower concern for more severe pathology such as Hammad's angina. However we will obtain a CT soft tissue of the neck in addition to basic laboratory studies to evaluate the patient's tonsils. She was in agreement this plan. She'll be given Tylenol and Motrin as well as IV Decadron. We'll give the department, she will also receive a one-time dose of IV Unasyn and 1 L fluid bolus. Patient was in agreement this plan. Patient's laboratory studies are remarkable for positive strep test. Covid is negative. Patient does have a leukocytosis of 23.8. Chest x-ray shows no acute cardiopulmonary process. Soft tissue CT of the neck did not reveal a peritonsillar abscess, however it did reveals findings concerning for acute tonsillitis/pharyngitis. On reevaluation, patient's feeling much improved. She is tolerating by mouth intake at this time. She states the swelling in the back of her throat seems improved. I did inform her the results of her imaging labs and extend that she likely has acute strep throat, strep pharyngitis and tonsillitis. She will be placed on antibiotics. I believe it is safer to be discharged home. She was in agreement this plan. Patient's heart rate is much improved at this time. I will provide the patient with a prescription for Augmentin twice a day for 10 days. I instructed the patient to follow up with their PCP in the next 3 days. I explained that the patient should return to the emergency department if they experience any worsening symptoms. Strict return precautions were discussed with the patient. The patient expressed understanding of these instructions. I answered all questions that the patient had. The patient was discharged home in fair condition with their prescriptions and follow up information. - Lab Data Result diagrams: 01/22/21 12:31 01/22/21 12:31 Lab Results 01/22/21 01/22/21 01/22/21 Range/Units 11:50 11:57 12:31 WBC 23.8 H (3.8-10.6) k/uL RBC 5.03 (3.80-5.40) m/uL Hgb 15.0 (11.4-16.0) gm/dL Hct 43.5 (34.0-46.0) % MCV 86.4 (80.0-100.0) fL MCH 29.9 (25.0-35.0) pg MCHC 34.6 (31.0-37.0) g/dL RDW 14.1 (11.5-15.5) % Plt Count 324 (150-450) k/uL MPV 7.0 Neutrophils % 85 % Lymphocytes % 8 % Monocytes % 4 % Eosinophils % 1 % Basophils % 1 % Neutrophils # 20.3 H (1.3-7.7) k/uL Lymphocytes # 2.0 (1.0-4.8) k/uL Monocytes # 0.9 (0-1.0) k/uL Eosinophils # 0.2 (0-0.7) k/uL Basophils # 0.1 (0-0.2) k/uL Sodium (137-145) mmol/L Potassium (3.5-5.1) mmol/L Chloride (98-107) mmol/L Carbon Dioxide (22-30) mmol/L Anion Gap mmol/L BUN (7-17) mg/dL Creatinine (0.52-1.04) mg/dL Est GFR (CKD-EPI)AfAm (>60 ml/min/1.73 sqM) Est GFR (CKD-EPI)NonAf (>60 ml/min/1.73 sqM) Glucose (74-99) mg/dL Calcium (8.4-10.2) mg/dL Magnesium (1.6-2.3) mg/dL Coronavirus (PCR) Not Detected (Not Detectd) Group A Strep Rapid Positive A (Negative) 01/22/21 Range/Units 12:31 WBC (3.8-10.6) k/uL RBC (3.80-5.40) m/uL Hgb (11.4-16.0) gm/dL Hct (34.0-46.0) % MCV (80.0-100.0) fL MCH (25.0-35.0) pg MCHC (31.0-37.0) g/dL RDW (11.5-15.5) % Plt Count (150-450) k/uL MPV Neutrophils % % Lymphocytes % % Monocytes % % Eosinophils % % Basophils % % Neutrophils # (1.3-7.7) k/uL Lymphocytes # (1.0-4.8) k/uL Monocytes # (0-1.0) k/uL Eosinophils # (0-0.7) k/uL Basophils # (0-0.2) k/uL Sodium 136 L (137-145) mmol/L Potassium 4.5 (3.5-5.1) mmol/L Chloride 104 (98-107) mmol/L Carbon Dioxide 23 (22-30) mmol/L Anion Gap 9 mmol/L BUN 9 (7-17) mg/dL Creatinine 0.67 (0.52-1.04) mg/dL Est GFR (CKD-EPI)AfAm >90 (>60 ml/min/1.73 sqM) Est GFR (CKD-EPI)NonAf >90 (>60 ml/min/1.73 sqM) Glucose 116 H (74-99) mg/dL Calcium 9.6 (8.4-10.2) mg/dL Magnesium 1.8 (1.6-2.3) mg/dL Coronavirus (PCR) (Not Detectd) Group A Strep Rapid (Negative) Disposition Clinical Impression: Streptococcal pharyngitis, Strep tonsillitis Disposition: HOME SELF-CARE Condition: Fair Instructions (If sedation given, give patient instructions): Strep Throat (ED) Prescriptions: Amoxicillin/Potassium Clav [Augmentin 875-125 Tablet] 1 tab PO Q12HR 10 Days #20 tab Is patient prescribed a controlled substance at d/c from ED?: No Referrals: Joana Salas MD [Primary Care Provider] - 1-2 days
[2021-01-22 13:05] LABS: African American GFR (CKD) >90 (>60 ml/min/1.73 sqM); Anion Gap 9 mmol/L; Blood Urea Nitrogen 9 mg/dL (7-17); Calcium 9.6 mg/dL (8.4-10.2); Carbon Dioxide 23 mmol/L (22-30); Chloride 104 mmol/L (98-107); Glucose 116 mg/dL (74-99); Magnesium 1.8 mg/dL (1.6-2.3); Non-African American GFR(CKD) >90 (>60 ml/min/1.73 sqM); Potassium 4.5 mmol/L (3.5-5.1); Sodium 136 mmol/L (137-145)
--- NOTE | 2021-01-22 13:10 | XR ---
EXAMINATION TYPE: XR chest 2V DATE OF EXAM: 01/22/2021 COMPARISON: 07/27/2013 HISTORY: 30-year-old female cough, congestion, shortness of breath TECHNIQUE: PA and lateral views FINDINGS: The cardiomediastinal silhouette, aorta, and pulmonary vasculature are within normal limits. And some strandy density at the posterior basal and lateral view. No bryce consolidation or pleural effusion. IMPRESSION: Some strandy atelectasis at the posterior lung base. No bryce consolidation to suggest pneumonia at t his time.
--- NOTE | 2021-01-22 13:33 | CT ---
EXAMINATION TYPE: CT soft tissue neck w con DATE OF EXAM: 01/22/2021 HISTORY: Concern for peritonsillar abscess, infection COMPARISON: NONE CT DLP: 485.7 mGycm. Automated Exposure Control for Dose Reduction was Utilized. TECHNIQUE: CT scan of the neck is performed with IV Contrast, patient injected with 100 ml mL of Iso jonatan 300, axial images are obtained, coronal and sagittal reformatted images are reviewed. FINDINGS: Airway: Marked Prominence of the adenoid tonsils in the posterior nasopharynx causing mass effect and narrowing of the nasopharyngeal airway axial image 60. No well-formed fluid collection or abscess. S uspicious mucosal enhancement is noted. Some additional prominence of the hard palate and suspected [place] lymph nodes in the oropharynx ax ial image 50. Some secretions in the vallecula. Epiglottis appears within normal limits. Piriform sinuses are maint ained coronal image 37. Hypopharyngeal airway is patent. Greater than 1 cm left thyroid nodule axial image 28 warrants ultrasound follow-up. Parotid/submandibular glands: No gross abnormality seen. Carotid/Vascular Structures: No significant abnormality. Osseous Structures: Straightening of spine may be positional. Other: Nasal septum deviated to right of midline. There are prominent bilateral neck lymph nodes including greater than 1 cm lymph nodes bilaterally ju st posterior to the submandibular glands. For reference on the left there is 1.7 x 1.5 cm lymph node marked axial image 50 IMPRESSION: Symmetric adenoid tonsillar enlargement posterior nasopharynx causing mass effect or narr owing of the nasopharyngeal airway. No well-formed fluid collection or drainable abscess. Suspect neyda e tonsillitis involving the palatine tonsils also but to a lesser degree of inflammation and/or mass effect.
[2021-01-22 13:54] VITALS: BP 104/59; PULSE 102; RESP 18; TEMP 98.3
== END 2021-01-22 14:09 | disposition home or self-care (01) ==
LOC: EC 11:42
DX: J02.0 Streptococcal pharyngitis (principal); J45.909 Unspecified asthma, uncomplicated; F41.9 Anxiety disorder, unspecified; F31.9 Bipolar disorder, unspecified; F12.90 Cannabis use, unspecified, uncomplicated; Z20.822 Contact with and (suspected) exposure to COVID-19
CPT/HCPCS: 99284; 96365; 96375; 36415; 80048; 83735; 85025; 87430; 87635; 71046; 70491; J1100; J0295; Q9967